=== PATIENT | male | born 1970 | race Caucasian/White ===

== ENCOUNTER 2018-09-24 11:19 | Emergency (ER) | payer MEDICAID, OTHER ==
[~2018-09-24] VITALS: Ht 167.6 cm; Wt 71.4 kg
[~2018-09-24 11:19] MED LIST: LORA1TAB PO
[2018-09-24 11:27] VITALS: BP 126/77
== END 2018-09-24 13:15 | disposition home or self-care (01) ==
LOC: ER 11:20
DX: F10.10 Alcohol abuse, uncomplicated (principal); F15.90 Other stimulant use, unspecified, uncomplicated; Z02.89 Encounter for other administrative examinations; Z86.14 Personal history of Methicillin resistant Staphylococcus aureus infection; Y90.9 Presence of alcohol in blood, level not specified; Z79.899 Other long term (current) drug therapy; Z59.0 Homelessness; Z56.0 Unemployment, unspecified
CPT/HCPCS: 99281

== ENCOUNTER 2018-11-20 12:28 | Emergency (ER) | payer MEDICAID, OTHER ==
[~2018-11-20] VITALS: Ht 165.1 cm; Wt 75.0 kg
[2018-11-20 12:47] VITALS: BP 124/80
[2018-11-20] MEDS ORDERED: LORazepam 0.5 MG tablet PO ONE (13:40)
[2018-11-20] MEDS ORDERED: LORazepam 1 MG tablet PO ONE (13:40)
[2018-11-20] MEDS ORDERED: DIPH50CA3 PO (13:42)
== END 2018-11-20 13:52 | disposition home or self-care (01) ==
LOC: ER 12:28
DX: F41.9 Anxiety disorder, unspecified (principal); R07.89 Other chest pain; F15.90 Other stimulant use, unspecified, uncomplicated; Z86.14 Personal history of Methicillin resistant Staphylococcus aureus infection; Z56.0 Unemployment, unspecified; Z59.0 Homelessness; Z79.899 Other long term (current) drug therapy
CPT/HCPCS: 93005; 99283; 99284

== ENCOUNTER 2018-12-05 04:09 | Emergency (ER) | payer MEDICAID ==
[~2018-12-05] VITALS: Ht 165.1 cm; Wt 60.6 kg
[~2018-12-05 04:09] MED LIST changes: +DIPH50CA3 PO
[2018-12-05] MEDS ORDERED: diphenhydrAMINE 50 mg/ml inj IM ONE (04:45)
[2018-12-05] MEDS ORDERED: haloperidol lactate 5mg/ml inj IM ONE (04:45)
[2018-12-05] MEDS ORDERED: QUET300T2 PO (04:45)
--- NOTE | 2018-12-05 05:07 | NUR ---
patient denies si/hi patient states " i am seeing things out of the corner of my eyes like moving shadows, i did a big line of meth and have been up for i don't know like 2 days."
[2018-12-05 07:29] VITALS: BP 121/76
--- NOTE | 2018-12-05 07:31 | NUR ---
pt reports no hallucinations at this time. patient was asleep but awoke to his name. Pt is calm and cooperative.
--- NOTE | 2018-12-05 07:38 | NUR ---
PT IS AWAKE A&OX 4, NOT HAVING ANY HALLUCINATION, PT WEARING APPROPRIATE CLOTHES AND SHOES, HAS A BLANKET AND SMALL GROCERY BAG OF BELONGINGS, PT STATES HE HAS BEEN HOMELESS FOR A COUPLE YEARS, PT AWARE OF [facility], GAVE RESOURCE SHEET, GAVE PT LUNCH BAG AND NOTIFIED DR CERVANTES, PT STATES WILL WALK TO [facility].
== END 2018-12-05 07:59 | disposition home or self-care (01) ==
LOC: ER 04:10
DX: F29 Unspecified psychosis not due to a substance or known physiological condition (principal); F15.10 Other stimulant abuse, uncomplicated; F41.9 Anxiety disorder, unspecified; R44.0 Auditory hallucinations; Z86.14 Personal history of Methicillin resistant Staphylococcus aureus infection; Z56.0 Unemployment, unspecified; Z59.0 Homelessness; Z79.899 Other long term (current) drug therapy
CPT/HCPCS: 96372; 99284; J1200; J1630; 99283

== ENCOUNTER 2019-06-27 12:05 | Emergency (ER) | payer SELFPAY ==
[~2019-06-27] VITALS: Ht 165.1 cm; Wt 70.0 kg
[~2019-06-27 12:05] MED LIST changes: +QUET300T2 PO
[2019-06-27 12:21] VITALS: BP 111/62
== END 2019-06-27 13:32 | disposition home or self-care (01) ==
LOC: ER 12:06
DX: M25.572 Pain in left ankle and joints of left foot (principal); F41.9 Anxiety disorder, unspecified; F10.10 Alcohol abuse, uncomplicated; F15.90 Other stimulant use, unspecified, uncomplicated; Z86.14 Personal history of Methicillin resistant Staphylococcus aureus infection; Z59.0 Homelessness; Z56.0 Unemployment, unspecified; Z79.899 Other long term (current) drug therapy; Y90.9 Presence of alcohol in blood, level not specified
CPT/HCPCS: 99281

== ENCOUNTER 2019-08-02 23:29 | Emergency (ER) | payer MEDICAID ==
[~2019-08-02] VITALS: Ht 165.1 cm; Wt 68.0 kg
[2019-08-02 23:31] VITALS: BP 137/83
== END 2019-08-03 02:23 | disposition left against medical advice (07) ==
LOC: ER 23:30
DX: F29 Unspecified psychosis not due to a substance or known physiological condition (principal); Z53.21 Procedure and treatment not carried out due to patient leaving prior to being seen by health care provider

== ENCOUNTER 2019-09-18 22:26 | Emergency (ER) | payer MEDICAID ==
[~2019-09-18] VITALS: Ht 165.1 cm; Wt 70.0 kg
[2019-09-18 22:31] VITALS: BP 134/77
== END 2019-09-19 01:30 | disposition left against medical advice (07) ==
LOC: ER 22:27
DX: F22 Delusional disorders (principal); Z53.21 Procedure and treatment not carried out due to patient leaving prior to being seen by health care provider

== ENCOUNTER 2019-09-19 23:09 | Emergency (ER) | payer MEDICAID ==
[~2019-09-19] VITALS: Ht 165.1 cm; Wt 70.0 kg
[2019-09-19 23:13] VITALS: BP 136/92
[2019-09-19] MEDS ORDERED: OLANZapine 5mg rapidly disint. tablet PO ONE (23:20)
== END 2019-09-19 23:32 | disposition left against medical advice (07) ==
LOC: ER 23:11
DX: F15.10 Other stimulant abuse, uncomplicated (principal); F23 Brief psychotic disorder; F41.9 Anxiety disorder, unspecified; F10.10 Alcohol abuse, uncomplicated; Z86.14 Personal history of Methicillin resistant Staphylococcus aureus infection; Z59.0 Homelessness; Z56.0 Unemployment, unspecified; Z79.899 Other long term (current) drug therapy; Y90.9 Presence of alcohol in blood, level not specified
CPT/HCPCS: 99281

== ENCOUNTER 2019-09-24 19:04 | Emergency (ER) | payer MEDICAID ==
[~2019-09-24] VITALS: Ht 165.1 cm; Wt 70.5 kg
[2019-09-24 21:25] VITALS: BP 107/57
== END 2019-09-24 21:32 | disposition home or self-care (01) ==
LOC: ER 19:05
DX: F15.10 Other stimulant abuse, uncomplicated (principal); R00.2 Palpitations; F41.9 Anxiety disorder, unspecified; F10.10 Alcohol abuse, uncomplicated; F17.200 Nicotine dependence, unspecified, uncomplicated; Z59.0 Homelessness; Z56.0 Unemployment, unspecified; Z86.14 Personal history of Methicillin resistant Staphylococcus aureus infection; Z79.899 Other long term (current) drug therapy
CPT/HCPCS: 93005; 99283

== ENCOUNTER 2019-12-21 18:18 | Emergency (ER) | payer MEDICAID ==
[~2019-12-21] VITALS: Ht 165.1 cm; Wt 70.4 kg
[2019-12-21 18:24] VITALS: BP 132/86
[2019-12-21] MEDS ORDERED: OLANZapine 2.5MG tablet PO STA (18:34)
[2019-12-21] MEDS ORDERED: OLAN10TA3 PO (18:38)
[2019-12-21] MEDS ORDERED: QUET-1 PO (18:38)
--- NOTE | 2019-12-21 18:45 | NUR ---
Unable to locate the patient to complete assessment and administer the medication dose.
--- NOTE | 2019-12-21 18:56 | NUR ---
Unable to locate the patient to complete assessment or medication administration. No staff report witnessing the patient leave the department.
--- NOTE | 2019-12-21 19:22 | NUR ---
Pt not seen or assessed by this nurse while he was in the ED.
== END 2019-12-21 19:22 | disposition home or self-care (01) ==
LOC: ER 18:19
DX: F20.9 Schizophrenia, unspecified (principal); F41.9 Anxiety disorder, unspecified; F17.200 Nicotine dependence, unspecified, uncomplicated; F10.10 Alcohol abuse, uncomplicated; F15.90 Other stimulant use, unspecified, uncomplicated; Z56.0 Unemployment, unspecified; Z86.14 Personal history of Methicillin resistant Staphylococcus aureus infection; Z59.0 Homelessness; Z79.899 Other long term (current) drug therapy; Z76.0 Encounter for issue of repeat prescription
CPT/HCPCS: 99281; 99283

== ENCOUNTER 2020-04-19 15:50 | Emergency (ER) | payer MEDICAID ==
[~2020-04-19] VITALS: Ht 165.1 cm; Wt 61.0 kg
[~2020-04-19 15:50] MED LIST changes: +OLAN10TA3 PO; +QUET-1 PO
[2020-04-19 15:55] VITALS: BP 111/73
[2020-04-19] MEDS ORDERED: CEPH500C5 PO (16:43)
[2020-04-19] MEDS ORDERED: DOXY100C2 PO (16:43)
== END 2020-04-19 17:00 | disposition home or self-care (01) ==
LOC: ER 15:51
DX: S81.002A Unspecified open wound, left knee, initial encounter (principal); F41.9 Anxiety disorder, unspecified; F10.10 Alcohol abuse, uncomplicated; F15.90 Other stimulant use, unspecified, uncomplicated; Z86.14 Personal history of Methicillin resistant Staphylococcus aureus infection; Z59.0 Homelessness; Z56.0 Unemployment, unspecified; Z79.899 Other long term (current) drug therapy; X58.XXXA Exposure to other specified factors, initial encounter; Y93.89 Activity, other specified; Y92.89 Other specified places as the place of occurrence of the external cause; Y99.8 Other external cause status; Y90.9 Presence of alcohol in blood, level not specified
CPT/HCPCS: 99283

== ENCOUNTER 2021-08-30 15:34 | Emergency (ER) | payer SELFPAY ==
[~2021-08-30] VITALS: Ht 165.1 cm; Wt 70.8 kg
[~2021-08-30 15:34] MED LIST changes: -DIPH50CA3 PO; +DIPH50CA40 PO
[2021-08-30 15:39] VITALS: BP 132/86
== END 2021-08-30 22:24 | disposition left against medical advice (07) ==
LOC: ER 15:34
DX: Z00.8 Encounter for other general examination (principal); Z53.21 Procedure and treatment not carried out due to patient leaving prior to being seen by health care provider